=== PATIENT | male | born 1990 | race Caucasian/White ===

== ENCOUNTER 2018-01-27 13:38 | Emergency (ER) | payer OTHER, SELFPAY ==
[2018-01-27 13:40] VITALS: BP 154/79; PULSE 120; RESP 16; TEMP 36.6; O2SAT 98; BMI 22.7
--- NOTE | 2018-01-27 13:49 | RAD_ITS ---
STUDY: X-RAY CHEST REASON FOR EXAM: Male, 27 years old. Palpitations. Fatigue. TECHNIQUE: Single AP portable view of the chest. COMPARISON: None. FINDINGS: EKG electrodes are seen. The lungs are clear and expanded. There is no demonstrated pleural abnormality. Normal size heart. Normal mediastinum and hannah. Normal visualized pulmonary arteries. Normal visualized aortic arch and descending thoracic aorta. Normal visualized thoracic spine. Normal visualized ribs, clavicles, and shoulders. There is no demonstrated abnormality of the visualized soft tissue structures of the upper abdomen. RAD/Chest 1 View (Portable) IMPRESSION: Normal x-ray examination of the chest. Electronically Signed: Scott Molina MD at 14:28 EST Tel [phone], Service support ,
[2018-01-27 13:51] VITALS: BP 140/93; PULSE 100; RESP 16; O2SAT 97
--- NOTE | 2018-01-27 14:05 | ED.VISSUMM ---
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 The patient has no history of LA PE DVT no cardiopulmonary symptoms. No fever no cough, chest pain, no URI symptoms normal bowel bladder habits other than noting 1 or 2 episodes of loose watery diarrhea no blood he has had no exposures to anyone who is been ill no tainted food Heart rate is about 105-110 sinus rhythm on monitor he has no complaints nothing is been different at home or at work he is on no medications and again he has no past medical history he has no specific complaints is able to basically go about his normal activities without any symptoms of any kind Physical Examination: [] 149/93, 90, 97% room air 98.4 oral temperature no distress General, no distress resting comfortably HEENT is generally unremarkable The neck is supple no adenopathy Cardiovascular, regular rate and rhythm Lungs, clear bilateral Abdomen, soft nontender Extremities, no clubbing cyanosis or edema Neurologic, awake alert answering questions appropriately moving all 4 extremities All the above screening labs are obtained Test Results: [] Emergency Department Course and Treatment: [] The patient's EKG shows a sinus rhythm nothing acute, the labs CBC sed rate chemistry thyroid studies chest x-ray UA are all generally unremarkable, he remains asymptomatic in the emergency room with no complaints Indicates now he believes he may been dehydrated as he drinks very little water preferring to drink his coffee we discussed the long differential with him he was remained asymptomatic these palpitations occurred on Friday he has had no fever no cough no chest pain no abdominal pain no numbness weakness paresthesias And require additional outpatient management he is comfortable discharge home he will return for change in symptoms and he is referred to [facility] for further management Treatment Plan: [] Disposition: [] Home stable Impression: [] palpitations This note was generated with Nu-[employer] Plus[employer] software. It may contain incorrect words, spelling, and punctuation that were not noted in review of the chart prior to signing ED Disposition - Plan for ED Patient: Chief Complaint: Palpitations Referrals: NOT,DEFINED [NON-STAFF] -
[2018-01-27 14:09] VITALS: O2SAT 99
[2018-01-27] MEDS: 0.9% Normal Saline 1,000 ML 150 ML IV (14:11)
[2018-01-27] MEDS: 0.9% Normal Saline 1,000 ML 999 ML IV (14:11)
[2018-01-27 14:22] LABS: Erythrocyte Sedimentation Rate 4 mm/hr (0-15)
[2018-01-27 14:24] LABS: Absolute Lymphocyte Count 2.49 X10^3/ul (0.83-4.51); Absolute Neutrophil Count 3.2 X10^3/uL (2.0-7.7); Basophil# 0.01 X10^3/uL; Basophil% 0.2 % (0-1); Eosinophil# 0.04 X10^3/uL; Eosinophils% 0.6 % (0-5); Hematocrit 45.3 % (40-54); Hemoglobin 15.4 g/dl (13.0-16.5); Lymphocyte # 2.49 X10^3/ul (4.0); Lymphocyte % 40.1 % (19-41); Mean Corpuscular Hgb 29.4 pg (27.0-32.0); Mean Corpuscular Volume 86.6 fL (80-94); Mean Platelet Vol. 9.5 fl (6.2-12.0); Monocyte# 0.42 X10^3/uL; Monocyte% 6.8 % (0-10); Neutrophil # 3.24 X10^3/uL (2.7-7.7); Neutrophil % 52.1 % (47-70); Platelet Count 292 K/mm3 (150-450); RBC Distribution Width CV 12.8 % (11.6-14.6); RBC Distribution Width SD 40.7 fl (35.1-43.9); Red Blood Count 5.23 M/mm3 (4.6-6.2); White Blood Count 6.2 K/mm3 (4.4-11.0)
[2018-01-27 14:26] LABS: POSITIVE COUNT NO; POSITIVE DIFFERENTIAL NO; POSITIVE MORPHOLOGY NO
[2018-01-27 14:30] LABS: D-Dimer Quantitative (DVT/PE) < 0.27 FEU/ug/m (0.27-0.49)
[2018-01-27 14:42] LABS: Anion Gap 8 (5-15); BUN 11 mg/dL (7-18); Calcium,Total 9.4 mg/dL (8.5-10.1); Chloride 104 mmol/L (98-107); EST Glomerular Filtration Rate 96 mL/min (>60); Est Glom Filt Rate - Afr Amer 116 mL/min (>60); Estimated Creatinine Clearance 121.39 ml/min; Glucose 85 mg/dL (74-106); Potassium 3.8 mmol/L (3.5-5.1); Sodium Level 141 mmol/L (136-145); T4 Free Direct 1.13 ng/dL (0.76-1.46)
[2018-01-27 14:52] LABS: BNP,B-Type NATRIURETIC PEPTIDE 10.6 pg/mL (0-100)
[2018-01-27 14:58] LABS: Bacteria 0 SEEN /hpf (None Seen); Mucous, Urine 0 SEEN /hpf (<or=2+); Red Blood Cells-Urine 0 SEEN /hpf (0-5); Squamous Epithelial Cells - UA 0 SEEN /hpf (0-5); White Blood Cells 0 SEEN /hpf (0-5)
[2018-01-27 14:59] VITALS: BP 142/90; PULSE 98; RESP 16; O2SAT 98
[2018-01-27 15:01] LABS: Color, Urine Yellow (Yellow); Glucose, Dipstick Normal (Normal); Ketone-Dipstick Negative (Negative); Leukocyte Esterase-Dipstick Negative /ul (Negative); Nitrite-Dipstick Negative (Negative); Occult Blood-Urine Negative /ul (Negative); Protein-Dipstick Negative (Negative); Specific Gravity, Urine 1.015 (1.002-1.030); Urine Bilirubin Dipstick Negative (Negative); Urine Clarity Clear (Clear); Urine Urobilinogen Normal (Normal)
--- NOTE | 2018-01-27 15:46 | ED.DEP ---
ED Disposition - Plan for ED Patient: Chief Complaint: Palpitations Instructions: ED Palpitations Referrals: NOT,DEFINED [NON-STAFF] - Hardik Solomon MD [STAFF PHYSICIAN] -
[2018-01-27 15:52] VITALS: BP 141/76; PULSE 101; RESP 15; O2SAT 98
--- OUTSIDE RECORDS SUMMARY | 2018-05-01 01:54 | XMS RPT_ITS ---
:1990 Author Organization [facility] Care Team Providers Name Role Phone DIANN BRAY (CASINO DUTY MANAGER) Referring Unavailable DIANN BRAY (CASINO DUTY MANAGER) Attending Unavailable Selvin Maier Attending Unavailable Primay Care Physicia, No Primary Care Unavailable Hardik Solomon Attending Unavailable Primay Care Physicia, No Referring Unavailable PROBLEMS PROBLEMS DATE TYPE CONDITION / CODE ATTENDING STATUS SOURCE 02/17/2018 Unknown R94.31 - Abnormal Hardik Solomon electrocardiogram Community [ECG] [EKG] / Hospital R94.31(ICD-10) Repository 02/17/2018 Unknown R00.0 - Tachycardia, Hardik Solomon unspecified / Community R00.0(ICD-10) Hospital Repository 02/17/2018 Unknown R00.2 - Palpitations / Hardik Solomon R00.2(ICD-10) [facility] Hospital Repository 02/17/2018 Unknown Z13.220 - Encounter Hardik Solomon for screening for Community lipoid disorders / Hospital Z13.220(ICD-10) Repository 01/27/2018 Active Tachycardia, NA Active [place] unspecified / Clinic Main R00.0(ICD-10) [place] Repository 01/27/2018 Active Other fatigue / NA Active [place] R53.83(ICD-10) Clinic Main [place] Repository 01/27/2018 Active Chest pain, NA Active [place] unspecified / Clinic Main R07.9(ICD-10) [place] Repository PROCEDURES PROCEDURES No Procedure Records FoundRESULTS RESULTS CARDIOLOGY VISIT Observed: 02/17/2018 Status: F Source: [place] RE[place] 3:56 PM [facility] REPOSITORY [facility] [address] [place] [address] OFFICE VISIT Date of Service: 02/17/18 MR#: [id number] Acct: [id number] Name: ANDRA JEREZ Rep #: [id number] : 1990 Provider: Hardik Solomon MD Age/Sex: 27/M Location: [facility] [place] Status: Signed HPI HPI Chief Complaint: Palpitations Details: ANDRA JEREZ, is a 27 M who presents to the office today for evaluation of palpitations. Specifically he is a nondiabetic, non-smoker, normal cholesterol, nonhypertensive, who apparently and reportedly was told he had a VSD when he was born, which resolved on its own after about 6 months time. I have no documentation to clarify that. He has no family history of premature coronary disease or sudden cardiac . 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 On 01/27/18 while he was at work and after a week's worth of poor eating and drinking habits his apple watch indicated that his heart rate was going between 130 and 150 bpm. Patient drank some water to improve things and his heart rate improved around 80 bpm. He went to the [facility] and was seen by a nurse practitioner and an EKG was performed which showed normal sinus rhythm with anterior ST elevation versus repolarization abnormality. In the ER at [facility] he was evaluated and his heart rate was between 105 and 110 bpm. He is on no medications at this time. His pulmonary workup including a CBC, sed rate, and chemistry and thyroid studies as well as chest x- ray were all unremarkable and he was sent home for follow-up. Patient states that since then he has been doing well. He denies any chest pain, angina, shortness of breath or dyspnea on exertion. His apple watch has however had some episodes of tachycardia. He did not take his pulse to confirm. In our office today's blood pressure is 110/60, pulse is 88 and regular. His physical exam demonstrates clear lungs bilaterally, regular rate and rhythm, normal S1/S2, no S3 or S4, no murmurs are detected. He has no edema. EKG dated 01/27/18 showed normal sinus rhythm, and early repolarization abnormality consistent with age. Lipids are pending Intake Vital Signs02/17/18 Height 6 ft 02/17/18 Weight: 163 lb 02/17/18 Body Mass Index (BMI) 22.1 02/17/18 Blood Pressure 110/60 Intake Visit Reasons: PALPS ([facility] ER) Impregnator Electrolytic Capacitors Required: No Accompanied by: Is patient in pain?: No Allergies No Known Allergies Allergy (Verified 02/12/18 13:51) Medications NK 01/27/18 [History Confirmed 02/12/18] [facility] Medical History Ventricular septal defect (Resolved) Abnormal EKG (Acute 01/27/18) Tachycardia (Acute 01/27/18) Palpitations (Acute 01/27/18) Family History Grandfather CAD (coronary artery disease) Myocardial infarction Uncle CAD (coronary artery disease) Myocardial infarction Social History Smoking Status: Never smoker ROS Const Const: Positive for other (Is a ferry pilot, referred self to be sure ok: 1 time episode rapid hr.); negative for fatigue, weakness, body ache, fever(s), headache(s), chills, frequent falls, night sweats, daytime sleepiness, difficulty sleeping, excessive sweating, weight gain, weight loss, increased appetite, poor appetite or anorexia Eyes Eyes: Negative for blind spots, loss of peripheral vision, transient loss of vision, blurry vision, change in vision, double vision, floaters, tunnel vision or other ENT ENT: Negative for headache(s), dizziness, hearing loss, tinnitus, Nosebleed/epistaxis, balance problems, post nasal drip, lip swelling, tongue swelling, bleeding gums, hoarseness, neck pain, dry mouth or other Cardio Chest Pain: No Palpitations: Yes (One time episode, his ARCHITECTURE PROFESSOR did an ekg and sent him to ER.) Edema: None Muscle aches with walking: None Resp Respiratory: Negative for SOB with activity, SOB at rest, SOB orthopnea\SOB lying down, Cough, Coughing up blood/hemoptysis, chest congestion, pain on inspiration, snoring, stridor, wheezing, crackles, paroxysmal nocturnal dyspnea or other GI GI: Negative nausea, vomiting, heartburn, constipation, belching, bloating, cramping, vomiting blood/hematemesis, bright, red blood in stools, black,tarry stools, loose stools, Difficulty Swallowing or other : Negative for hematuria, frequent nighttime urination/ nocturia, erectile dysfunction or abnormal vaginal bleeding Musc Musc: Negative for balance problems, muscle aches/ myalgia, muscle weakness or joint pain Skin Skin: Negative redness, non-healing lesions, rash, unusual bruising, skin ulcer, wounds, jaundice or other Neuro Neuro: Negative for weakness, headache(s), frequent falls, blurry vision, double vision, dizziness, lightheadedness, near syncope, syncope, orthostatic symptoms, confusion, memory loss, restless legs, vertigo, seizures, lack of coordination or other Maurizio Hematologic/Lymphatic: Negative for easy bleeding, easy bruising, enlarged lymph nodes or other Endo Endo: Negative for fatigue, excessive sweating, cold intolerance, heat intolerance, flushing, increased thirst/drinking, increased hunger, hair loss, hair growth or other Psych Psych: Negative for anxiety, depression, thoughts of harming anyone, thoughts of harming yourself, visual hallucinations, panic attacks or audible hallucinations Allergy Allergy/Immunology: Negative for lip swelling, Negative for tongue swelling, Negative for rash, Negative for throat swelling, Negative for hives Cardiology Exam Const Appearance: cooperative, healthy appearing and no acute distress Nutritional Appearance: well nourished Orientation: alert, oriented x3 and oriented to person Head Head: normal to inspection, atraumatic and normocephalic Nose: external nose normal Face and Sinus: face symmetric Mouth: oral mucosae normal Eyes General: appearance normal, both eyes and all related structures Eyelids: eyelids normal Conjunctivae: conjunctivae normal Pupils: PERRL and normal by confrontation EOM: EOM intact bilaterally Neck Neck: normal visual inspection and full ROM Carotids: normal carotid upstroke Chest Chest inspection: normal inspection of the chest Auscultation: Bilateral: Clear to Auscultation Cardio Palpation: normal PMI Rate: regular rate Rhythm: regular rhythm Heart sounds: S1 normal and S2 normal GI GI: normal to inspection, no hepatosplenomegaly and bowel sounds present Neuro General: alert, oriented x3, awake, CN's II-XI intact bilaterally and moves all extremities Skin Skin: no rashes or lesions noted Extremities Pulses: Normal: Right Femoral Pulse, Left Femoral Pulse, Right Dorsalis Pedis Pulse, Left Dorsalis Pedis Pulse, Right Posterior Tibial Pulse, Left Posterior Tibial Pulse, Right Radial Pulse, Left Radial Pulse Lower Extremity Edema: None: Bilateral Psych Psychological: normal affect Assessment AND Plan 1. Ventricular septal defect Q21.0 Patient said he had it at , and by a few months of age it was closed. Plan 1. Ventricular septal defect: The patient reportedly had a VSD which spontaneously closed on its own about 6 months after he was born. I have no corroborating echocardiogram or old records to confirm or deny that. I cannot detect any murmurs. Patient now presents with palpitations and tachycardia as evidenced by his apple watch. Patient's EKG shows what appears to be early repolarization abnormalities. 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 In addition I recommended a fasting lipid profile as well as a event monitor to try and document her track his arrhythmias. Have advised him to avoid alcohol, dehydration, sleep deprivation, as well as caffeine in order to mitigate any additional palpitation. 2. Abnormal EKG R94.31 Plan 2. Abnormal EKG: The patient has normal sinus rhythm with anterior J-point elevation consistent with LVH and repolarization of normality. This is considered a normal finding in a young male. Echocardiogram is pending. Orders Orders: 3. Tachycardia R00.0 Plan 3. 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 4. Return office in 6 months. This note was generated using a voice recognition system and there may be incorrect words, spelling or punctuation that were not noted when reviewing the office note prior to saving. Orders Orders: Plan Detail Other Orders Orders: Follow Up +6M (Solomon) Coding Level of Care Code Off vis,new,level 4 Diagnoses Ventricular septal defect Q21.0 Abnormal EKG R94.31 Tachycardia R00.0 Coding Level of Care Code Off vis,new,level 4 Diagnoses Ventricular septal defect Q21.0 Abnormal EKG R94.31 Tachycardia R00.0 Supplemental Info Supplemental Information Diagnostics Chest X-Ray 01/27/18 02/17/18 4156 <Electronically signed by Hardik Solomon MD> Date Hardik Solomon MD [facility] Signature: Date (if applicable) CC: EMERGENCY DEPARTMENT Observed: 01/28/2018 Status: F Source: [place] SUMMARY 11:37 PM [facility] REPOSITORY [facility] Medical Records Department [address] [place] [address] Emergency Department Summary 01/27/18 1405 MR#: [id number] Acct: [id number] Name: ANDRA JEREZ Rep #: [id number] : 1990 27 From: Selvin Maier MD PCP: Care Physician, No Primary Status: DEP ER - ER Visit Summary Date of Service: 01/27/18 Chief Complaint: [] Palpitations rapid heart rate on Friday History of Present Illness: The patient is a 27 M [] patient indicates 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 The patient has no history of FL PE DVT no cardiopulmonary symptoms. No fever no cough, chest pain, no URI symptoms normal bowel bladder habits other than noting 1 or 2 episodes of loose watery diarrhea no blood he has had no exposures to anyone who is been ill no tainted food Heart rate is about 105-110 sinus rhythm on monitor he has no complaints nothing is been different at home or at work he is on no medications and again he has no past medical history he has no specific complaints is able to basically go about his normal activities without any symptoms of any kind Physical Examination: [] 149/93, 90, 97% room air 98.4 oral temperature no distress General, no distress resting comfortably HEENT is generally unremarkable The neck is supple no adenopathy Cardiovascular, regular rate and rhythm Lungs, clear bilateral Abdomen, soft nontender Extremities, no clubbing cyanosis or edema Neurologic, awake alert answering questions appropriately moving all 4 extremities All the above screening labs are obtained Test Results: [] Emergency Department Course and Treatment: [] The patient's EKG shows a sinus rhythm nothing acute, the labs CBC sed rate chemistry thyroid studies chest x-ray UA are all generally unremarkable, he remains asymptomatic in the emergency room with no complaints Indicates now he believes he may been dehydrated as he drinks very little water preferring to drink his coffee we discussed the long differential with him he was remained asymptomatic these palpitations occurred on Friday he has had no fever no cough no chest pain no abdominal pain no numbness weakness paresthesias And require additional outpatient management he is comfortable discharge home he will return for change in symptoms and he is referred to [place] [facility] for further management Treatment Plan: [] Disposition: [] Home stable Impression: [] palpitations This note was generated with [email or web address] dictation software. It may contain incorrect words, spelling, and punctuation that were not noted in review of the chart prior to signing ED Disposition - Plan for ED Patient: Chief Complaint: Palpitations Referrals: NOT,DEFINED [NON-STAFF] - What to do if you have Problems For any increased pain, shortness of breath, bleeding, nausea or vomiting, chest pain, or any unexpected problems, contact your Primary Care Provider. Call [facility] ([phone]) or report to the closest Emergency Room. Call 911 if necessary. 01/28/18 7323 <Electronically signed by Selvin Maier MD> Date Selvin Maier MD Cosigner Signature (If Indicated): Date CC: No Primary Care Physician DISCHARGE INSTRUCTION Observed: 01/27/2018 Status: F Source: [place] 3:47 PM [facility] REPOSITORY [facility] Medical Records Department [address] [place] [address] Discharge Instruction 01/27/18 1546 MR#: [id number] Acct: [id number] Name: ANDRA JEREZ Rep #: [id number] : 1990 27 From: Selvin Maier MD PCP: Care Physician, No Primary Status: REG ER ED Disposition - Plan for ED Patient: Chief Complaint: Palpitations Instructions: ED Palpitations Referrals: NOT,DEFINED [NON-STAFF] - Hardik Solomon MD [STAFF PHYSICIAN] - What to do if you have Problems For any increased pain, shortness of breath, bleeding, nausea or vomiting, chest pain, or any unexpected problems, contact your Primary Care Provider. Call [facility] ([phone]) or report to the closest Emergency Room. Call 911 if necessary. 01/27/18 1547 <Electronically signed by Selvin Maier MD> Date Selvin Maier MD Cosigner Signature (If Indicated): Date CC: No Primary Care Physician URINALYSIS, COMPLETE Collected: 01/27/2018 Status: F Source: [place] 2:54 PM [facility] REPOSITORY Order Comment: Order Date: 01/27/18 How was Urine Obtained? CLEAN CATCH TYPE CODE TESTS RESULT OUT OF RANGE REFERENCE UNITS LAB L400.3000 Yellow COLOR Normal Yellow LAB L400.3050 Clear Normal CLARITY Clear LAB L400.3200 Normal mg/dl Normal GLUCOSE, UR Normal LAB L400.3300 Negative mg/dL Normal BILIRUBIN URINE Negative LAB L400.3400 Negative mg/dl Normal KETONE UR Negative LAB L400.3465 1.002-1.030 Normal SP.GR. DIPSTX 1.015 LAB L400.3550 5.0 - 8.0 pH UR Normal 6.0 LAB L400.3600 Negative mg/dl PROT Normal DIPSTX Negative LAB L400.3700 Normal mg/dl Normal UROBILI Normal LAB L400.3750 Negative Normal NITRITE UR Negative LAB L400.3780 Negative /ul Normal OCCULT BLOOD-UR Negative LAB L400.3800 Negative /ul LEUK Normal ESTERASE Negative LAB L400.4050 0-5 /hpf WBC 0 Normal SEEN LAB L400.4100 0-5 /hpf 0 Normal RBC-UA SEEN LAB L400.4150 0-5 /hpf SQUAM 0 Normal EPI SEEN LAB L400.4300 None Seen /hpf 0 Normal BACTERIA SEEN LAB L400.4350 <or=2+ /hpf 0 Normal MUCUS, URINE SEEN Performed By: #### L400.0001 #### [facility] [address] [place], [address] ERYTHROCYTE SED RATE Collected: 01/27/2018 Status: F Source: [place] 2:10 PM [facility] REPOSITORY TYPE CODE TESTS RESULT OUT OF RANGE REFERENCE UNITS LAB L102.0000 0-15 mm/hr Normal SED RATE 4 Performed By: #### L101.9900, L100.0100 #### [facility] [address] [place], [address] CBC W/DIFF, AUTOMATED Collected: 01/27/2018 Status: F Source: [place] 2:10 PM [facility] REPOSITORY TYPE CODE TESTS RESULT OUT OF RANGE REFERENCE UNITS LAB L100.1000 4.4-11.0 K/mm3 Normal WBC 6.2 LAB L100.1200 4.6-6.2 M/mm3 Normal RBC 5.23 LAB L100.1300 13.0-16.5 g/dl Normal HGB 15.4 LAB L100.1400 40-54 % Normal HCT 45.3 LAB L100.1500 80-94 fL Normal MCV 86.6 LAB L100.1600 27.0-32.0 pg Normal MCH 29.4 LAB L100.1700 32-36 g/gl Normal MCHC 34.0 LAB L100.1810 11.6-14.6 % Normal RDW CV 12.8 LAB L100.1820 35.1-43.9 fl Normal RDW SD 40.7 LAB L100.1900 150-450 K/mm3 Normal PLT 292 LAB L100.2000 6.2-12.0 fl Normal MPV 9.5 LAB L100.2100 47-70 % Normal NEUT% 52.1 LAB L100.2200 19-41 % Normal LY% 40.1 LAB L100.2300 0-10 % Normal MONO% 6.8 LAB L100.2400 0-5 % Normal EO% 0.6 LAB L100.2500 0-1 % Normal BASO% 0.2 LAB L100.2550 0.0-0.9 % Normal IM GRAN % 0.200 Result Comment: IG% - Immature Granulocytes (promyelocytes, myelocytes and metamyelocytes) > 1% indicates that a LEFT SHIFT is Present. LAB L100.2620 2.0-7.7 X10 3/uL Normal Absolute Neut 3.2 LAB L100.2720 0.83-4.51 X10 3/ul Normal Absolute Lymph 2.49 Performed By: #### L101.9900, L100.0100 #### [facility] [address] [facility] [place], [place], [address] D-DIMER QUANTITATIVE Collected: 01/27/2018 Status: F Source: [place] (DVT/PE) 2:10 PM [facility] REPOSITORY TYPE CODE TESTS RESULT OUT OF RANGE REFERENCE UNITS LAB L300.8000 0.27-0.49 FEU/ug/m Low D-DIMER < 0.27 QUANT Result Comment: NORMAL D-Dimer level (<0.50) indicates no DVT or PE. NORMAL D-Dimer level (<0.50) indicates no DVT or PE. Performed By: #### L300.8000 #### [facility] [address] [facility] [place], [place], [address] BASIC METABOLIC Collected: 01/27/2018 Status: F Source: [place] PROFILE (BMP) 2:10 PM [facility] REPOSITORY TYPE CODE TESTS RESULT OUT OF RANGE REFERENCE UNITS LAB L501.0100 74-106 mg/dL Normal GLU 85 Result Comment: Please note revised GLUCOSE reference range effective 2017. LAB L501.1000 7-18 mg/dL Normal BUN 11 LAB L501.1100 0.70-1.30 mg/dL Normal CREAT,SERUM 1.00 Result Comment: The validity of the calculated GFR AND GFRAA in patients over 70 years has not been determined. Clinical correlation is essential. LAB L501.1110 >60 mL/min Normal EST GFR 96 Result Comment: Non- GFR Calc LAB L501.1115 >60 mL/min Normal EST GFR - AA 116 Result Comment: GFR Calc LAB L501.1255 ml/min Normal Estimated CRCL 121.39 LAB L501.1300 10-20 RATIO BUN/CRE Normal 11.0 LAB L501.2200 8.5-10 mg/dL .1 CA Normal 9.4 LAB L501.5300 136-14 mmol/L 5 NA Normal 141 LAB L501.5600 3.5-5. mmol/L 1 K Normal 3.8 LAB L501.5900 98-107 mmol/L CL Normal 104 LAB L501.6100 21.0-3 mmol/L 2.0 CO2 Normal 29.0 LAB L501.6200 5-15 GAP Normal 8 Performed By: #### L500.2500, L501.4010, L501.9520, L506.0400 #### [facility] [address] [facility] [place], [place], [address] TROPONIN-I Collected: 01/27/2018 Status: F Source: [place] 2:10 PM [facility] REPOSITORY TYPE CODE TESTS RESULT OUT OF RANGE REFERENCE UNITS LAB L501.4010 <0.045 ng/mL Normal < 0.015 TROPONIN-I Result Comment: TROPONIN-I EXPECTED VALUES <0.045 Negative 0.045 - 0.590 Consistent with Cardiac Damage > OR = 0.600 Critical Value Not every elevated troponin is indicative of FL. These values should be used with clinical judgement in examining the patient's clinical picture for diagnosis. To establish a diagnosis of FL versus myocardial injury, there must be a demonstrated rise and/or fall in the troponin values, in addition to ischemic symptoms, EKG changes, new regional wall motion abnormality, and/or angiographical evidence. PLEASE NOTE: REFERENCE RANGES EDITED 17 Performed By: #### L500.2500, L501.4010, L501.9520, L506.0400 #### [facility] [address] [place], [address] THYROID STIM HORMONE Collected: 01/27/2018 Status: F Source: [place] (TSH) 2:10 PM [facility] REPOSITORY TYPE CODE TESTS RESULT OUT OF RANGE REFERENCE UNITS LAB L501.9520 0.358-3.74 uIU/mL Normal TSH 1.60 Performed By: #### L500.2500, L501.4010, L501.9520, L506.0400 #### [facility] [address] [place], [address] T4 FREE DIRECT Collected: 01/27/2018 Status: F Source: [place] 2:10 PM [facility] REPOSITORY TYPE CODE TESTS RESULT OUT OF RANGE REFERENCE UNITS LAB L506.0400 0.76-1.46 ng/dL Normal T4 FREE 1.13 DIRECT Performed By: #### L500.2500, L501.4010, L501.9520, L506.0400 #### [facility] [address] [place], [address] BNP,B-TYPE NATRIURETIC Collected: 01/27/2018 Status: F Source: [place] PEPTIDE 2:10 PM [facility] REPOSITORY TYPE CODE TESTS RESULT OUT OF RANGE REFERENCE UNITS LAB L503.6620 0-100 pg/mL Normal B-TYPE 10.6 PAVEL PEP Performed By: #### L503.6620 #### [facility] [address] [place], [address] CHEST 1 VIEW Observed: 01/27/2018 Status: F Source: [place] (PORTABLE) 1:55 PM [facility] REPOSITORY [facility] Imaging Services [address] [place] [address] Chest 1 View (Portable) MR#: [id number] Acct: [id number] Name: ANDRA JEREZ Rep #: [id number] : 1990 M 27 From: Scott Molina MD PCP: Care Physician, No Primary Status: REG ER Study: Chest 1 View (Portable) Date of Exam: 01/27/18 Exam# [id number] Ordering Dr: Selvin Maier MD STUDY: X-RAY CHEST REASON FOR EXAM: Male, 27 years old. Palpitations. Fatigue. TECHNIQUE: Single AP portable view of the chest. COMPARISON: None. FINDINGS: EKG electrodes are seen. The lungs are clear and expanded. There is no demonstrated pleural abnormality. Normal size heart. Normal mediastinum and hannah. Normal visualized pulmonary arteries. Normal visualized aortic arch and descending thoracic aorta. Normal visualized thoracic spine. Normal visualized ribs, clavicles, and shoulders. There is no demonstrated abnormality of the visualized soft tissue structures of the upper abdomen. RAD/Chest 1 View (Portable) IMPRESSION: Normal x-ray examination of the chest. Electronically Signed: Scott Molina MD at 14:28 EST Tel [phone], Service support , CC: MD Huma Maier; No Primary Care Physician Facility Service Associate: Signed ECG COMPLETE W Observed: 01/27/2018 Status: F Source: [place] [facility] 1:18 PM [facility] REPOSITORY NAME : ANDRA JEREZ PID : [id number] : 1990 Gender : Male Race : ORD : [id number] Procedure Date : Jan 27 2018 13:18:05 Edit Date : Feb 09 2018 09:17:04 Diagnosis:NORMAL SINUS RHYTHM ST ELEVATION, CONSIDER EARLY REPOLARIZATION BORDERLINE ECG Confirmed by GRAY MOONEY D.O. ([id number]) on 02/09/2018 9:16:53 AM Ventricular Rate : 78 BPM Atrial Rate : 78 BPM P-R Interval : 142 ms QRS Duration : 76 ms Q-T Interval : 368 ms QTC Calculation(Bezet) : 419 ms P [place] : 1 degrees R [place] : 84 degrees T [place] : 44 degrees Test Reason : Location : [facility] : [facility] Overread By : GRAY MOONEY D.O. Edited By : GRAY MOONEY D.O. Referred By : DIANN BRAY Acquired by : ANGEL, PROGRESS Observed: 01/27/2018 Status: COMPLETED Source: [place] 12:43 PM [facility] REPOSITORY [facility] ID: [id number] Author: Diann (Debbie) Luci Service: (none) Author Type: Nurse Practitioner Type: Progress Notes Filed: 01/27/2018 2:37 PM Note Text: 01/27/2018 Patient presents with: Fatigue SUBJECTIVE: This is a 27 year old that is here today for a new limited visit, not regularly followed by a provider, he states that he is usually overal healthy. Friday felt fatigued, was watching his smart watch and saw that his HR was up 110-135 while sitting and doing nothing. He states that he thought about going to ER, drank water and it resolved. HR over the weekend, no higher than 110. He denies this ever happened in the past. He also had an episode of left sided chest pressure that only lasted seconds at a time, but several times in a short period. Admits that he does not drink a lot of water and does drink a lot of coffee and caffeine. He states that he did not drink caffeine on Friday. He states that over the weekend, felt worn out, no other symptoms of URI or anything like that. He admits to stress, but does not feel that he has anxiety, he states that he calms down when he works out whatever issue he has. 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 He did have an episode of heart burn lasting a whole day a couple of weeks ago that is not typical for him. No known food trigger, none since. Eating normally, denies NVD. Regular BMs. No concerns. He denies any significant family history other than grandmother having Afib. 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 No other history. Denies BURGESS, dizziness, lightheadedness, weakness. PAST MEDICAL HISTORY Diagnosis Date - VSD (ventricular septal defect) ALLERGIES Patient has no known allergies. MEDICATIONS No current outpatient prescriptions on file. No current facility-administered medications for this visit. Medications and allergies reviewed by this provider. SOCIAL HISTORY Social History Marital status: Spouse name: Years of education: Number of children: Social History Main Topics Smoking status: Never Smoker Smokeless tobacco: Never Used Alcohol use: Yes Drug use: No REVIEW OF SYSTEMS see HPI OBJECTIVE: BP 112/72 Pulse 90 Resp 20 Wt 76.2 kg (168 lb) SpO2 99% . Vital signs reviewed by this provider. PHYSICAL EXAMINATION: General appearance: Well appearing, alert, in no acute distress, well-hydrated, well nourished. Skin: Skin color, texture, turgor normal, no suspicious rashes or lesions Lungs: lungs clear to auscultation. No wheezing, rhonchi, rales Heart: RRR without murmur, gallop, or rubs. No ectopy Extremities: No deformities, edema, skin discoloration, clubbing or cyanosis. Good capillary refill. , Pulses: 2+ ASSESSMENT/PLAN: 1. Tachycardia - ICD9: 785.0, ICD10: R00.0 (primary diagnosis) - report called to [facility] ER- Nurse Ivonne- with request for further work up after seeing ST elevation on EKG. - ECG COMPLETE W INTERPRETATION - CBC + DIFF - COMP METABOLIC PANEL - TSH BLD - T4 FREE/FREE THYROX - T3 BLD 2. Fatigue, unspecified type - ICD9: 780.79, ICD10: R53.83 - can further work up with below labs after cardiac work up complete - ECG COMPLETE W INTERPRETATION - CBC + DIFF - COMP METABOLIC PANEL - TSH BLD - T4 FREE/FREE THYROX - T3 BLD 3. Chest pain, unspecified type - ICD9: 786.50, ICD10: R07.9 Chest pain of unclear etiology, patient with significant risk factor(s) of none - Electrocardiogram: An ECG today showed normal sinus rhythm with ST elevation probably due to early repolarization at 78 BPM, DE interval 142 ms, normal QRS, QT 368 ms - Referred to ED by squad - ECG COMPLETE W INTERPRETATION 4. ST elevation - ICD9: 794.31, ICD10: R94.31 - report called to [facility] ER Diann Bray APRN.DEBBIE SOLO Observed: 01/27/2018 Status: COMPLETED Source: [place] 12:40 PM [facility] REPOSITORY Office Visit (FAMPWS) SOLITARIOANDRA Martinez ([id number]) 1990 M Date Time Provider Department 01/27/18 12:40 PM DIANN BRAY (CASINO DUTY MANAGER) VIDA During your visit today, we recorded the following information about you: Pulse Respiration Blood pressure Weight 90/minute 20/minute 112/72 76.2 kg Diann Bray APRN.CNP 01/27/2018 2:37 PM Signed 01/27/2018 Patient presents with: Fatigue SUBJECTIVE: This is a 27 year old that is here today for a new limited visit, not regularly followed by a provider, he states that he is usually overal healthy. Friday felt fatigued, was watching his smart watch and saw that his HR was up 110-135 while sitting and doing nothing. He states that he thought about going to ER, drank water and it resolved. HR over the weekend, no higher than 110. He denies this ever happened in the past. He also had an episode of left sided chest pressure that only lasted seconds at a time, but several times in a short period. Admits that he does not drink a lot of water and does drink a lot of coffee and caffeine. He states that he did not drink caffeine on Friday. He states that over the weekend, felt worn out, no other symptoms of URI or anything like that. He admits to stress, but does not feel that he has anxiety, he states that he calms down when he works out whatever issue he has. 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 He did have an episode of heart burn lasting a whole day a couple of weeks ago that is not typical for him. No known food trigger, none since. Eating normally, denies NVD. Regular BMs. No concerns. He denies any significant family history other than grandmother having Afib. 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 No other history. Denies BURGESS, dizziness, lightheadedness, weakness. PAST MEDICAL HISTORY Diagnosis Date - VSD (ventricular septal defect) ALLERGIES Patient has no known allergies. MEDICATIONS No current outpatient prescriptions on file. No current facility-administered medications for this visit. Medications and allergies reviewed by this provider. SOCIAL HISTORY Social History Marital status: Spouse name: Years of education: Number of children: Social History Main Topics Smoking status: Never Smoker Smokeless tobacco: Never Used Alcohol use: Yes Drug use: No REVIEW OF SYSTEMS see HPI OBJECTIVE: BP 112/72 Pulse 90 Resp 20 Wt 76.2 kg (168 lb) SpO2 99% . Vital signs reviewed by this provider. PHYSICAL EXAMINATION: General appearance: Well appearing, alert, in no acute distress, well-hydrated, well nourished. Skin: Skin color, texture, turgor normal, no suspicious rashes or lesions Lungs: lungs clear to auscultation. No wheezing, rhonchi, rales Heart: RRR without murmur, gallop, or rubs. No ectopy Extremities: No deformities, edema, skin discoloration, clubbing or cyanosis. Good capillary refill. , Pulses: 2+ ASSESSMENT/PLAN: 1. Tachycardia - ICD9: 785.0, ICD10: R00.0 (primary diagnosis) - report called to [facility] ER- Nurse Coronado- with request for further work up after seeing ST elevation on EKG. - ECG COMPLETE W INTERPRETATION - CBC + DIFF - COMP METABOLIC PANEL - TSH BLD - T4 FREE/FREE THYROX - T3 BLD 2. Fatigue, unspecified type - ICD9: 780.79, ICD10: R53.83 - can further work up with below labs after cardiac work up complete - ECG COMPLETE W INTERPRETATION - CBC + DIFF - COMP METABOLIC PANEL - TSH BLD - T4 FREE/FREE THYROX - T3 BLD 3. Chest pain, unspecified type - ICD9: 786.50, ICD10: R07.9 Chest pain of unclear etiology, patient with significant risk factor(s) of none - Electrocardiogram: An ECG today showed normal sinus rhythm with ST elevation probably due to early repolarization at 78 BPM, DE interval 142 ms, normal QRS, QT 368 ms - Referred to ED by squad - ECG COMPLETE W INTERPRETATION 4. ST elevation - ICD9: 794.31, ICD10: R94.31 - report called to [facility] ER Diann Bray APRN.CASINO DUTY MANAGER Referring Provider: SELF [200] Allergies As of Date: 01/27/2018 (No Known Allergies) Date Reviewed: 01/27/2018 Reviewed by: Destiny oMnteiro) ZULY Cruz - Fully Assessed Reason for Visit: Fatigue [46] Primary Visit Diagnosis:Tachycardia [R00.0] Other Visit Diagnoses:Fatigue, unspecified type [R53.83] Chest pain, unspecified type [R07.9] ST elevation [R94.31] Order(s):ECG COMPLETE W INTERPRETATION [ECG01] Order #: [id number] FUTURE CBC + DIFF [SQCBCDIF] Order #: [id number] FUTURE COMP METABOLIC PANEL [SQCMP] Order #: [id number] FUTURE TSH BLD [SQTSH] Order #: [id number] FUTURE T4 FREE/FREE THYROX [SQFT4] Order #: [id number] FUTURE T3 BLD [SQT3] Order #: [id number] FUTURE Problem List As Of Date: 01/27/2018 (None) Encounter Status:Closed by DIANN BRAY on 01/27/18 ALLERGIES ALLERGIES DATE TYPE / CODE NAME / CODE REACTION SEVERITY SOURCE 02/12/2018 Drug No Known Unknown [facility] Allergy/416 Allergies/S45981 Hospital [id number](SNOM 0388(RXNORM) Repository ED CT) Drug NO KNOWN [facility] Class/16601 ALLERGIES Main [place] 1003(SNOMED Repository CT) ENCOUNTERS ENCOUNTERS ADMIT/DISCHARGE ACCOUNT ADMITTING ENCOUNTER LOCATION SOURCE NUMBER CLASS 02/17/2018/02/17/19 [id number] Ambulatory BMSBuilding:[facility] [place] [facility] [place] Repository 01/27/2018/01/28/20 [id number] Ambulatory [address] Repository 01/27/2018/01/28/20 [id number] Emergency [address] ing:ED Repository 01/27/2018/01/29/20 [id number] Ambulatory [address] Repository PAYERS PAYERS ENCOUNTER GUARANTOR PAYER SUBSCRIBER SOURCE 02/17/2018 ANDRA J Primary ANDRA J [place] [id number] [place] Insurance:MEDICAL EWINGDOB: [facility] [id number] Hospital [address]Eds: 330) Number: Repository [phone] ) [id number] Date:[id number] [address]ER: 02/17/2018 Secondary NOT GIVENUNK [place] Insurance:SELF PAY [facility] Number: Effective Repository Date:2018-02-17 01/27/2018 ANDRA J Primary ANDRA J [place] [id number] [place] Insurance:MEDICAL EWINGDOB: [facility] [id number] Hospital [address]Smg: (330) Number: Repository [phone] () [id number] Date:[id number] [address]ZE: 01/27/2018 Secondary NOT GIVENUNK [place] Insurance:SELF PAY [facility] Number: Effective Repository Date:2018-01-27
== END 2018-01-27 16:12 | disposition home or self-care (01) ==
LOC: ED 14:12
PROVIDERS: Emergency Provider Emergency Medicine
DX: R00.2 Palpitations (principal)
CPT/HCPCS: 71045; 80048; 81001; 83880; 84439; 84443; 84484; 85025; 85379; 85652; 93005; 96360; 96361; 99284; J7030; A4216

== ENCOUNTER → 2018-03-10 13:00 | Outpatient (CLI) | payer OTHER, SELFPAY ==
[2018-02-17 15:17] VITALS: BMI 22.1
--- NOTE | 2018-03-10 13:03 | ECHOD_ITS ---
Reason For Study: ABN EKG Procedure This was a 2D Doppler, Color Flow transthoracic echocardiogram. Exam performed in department. Left Ventricle Normal size and thickness. Successfully repaired proximal VSD with no evidence of shunting. The estimated ejection fraction is 65 %. Normal diastology for age. No regional wall motion abnormalities noted. Right Ventricle Normal size and thickness. Normal systolic function. Atria Normal left atrium. Normal right atrium. Normal atrial septum. Mitral Valve The mitral valve is structurally normal. No prolapse or stenosis seen. Trivial mitral valve insufficiency. Tricuspid Valve Normal tricuspid valve. Trivial tricuspid valve insufficiency. Right ventricular systolic pressure estimated to be 34 mmHg. Aortic Valve Normal aortic valve. Trisinus/trileaflet aortic valve. Pulmonic Valve Normal pulmonic valve. Great Vessels Normal aortic root. Normal arch. Normal inferior vena cava. Inferior vena cava collapse with sniff. Pericardium/Pleural No pericardial effusion. MMode/2D Measurements & Calculations LVIDd: 3.5 cm IVSd: 1.2 cm Ao root diam: 2.7 cm LVIDs: 2.3 cm LVPWd: 1.1 cm RVDd: 3.3 cm FS: 36.1 % LAV(MOD-bp): 40.9 ml LA A4 area: 16.9 cm2 LA dimension(2D): 3.3 cm LAV(MOD-bp) Indexed: 21.1 ml/m2 LAV(MOD-sp2): 36.3 ml LAV(MOD-sp4): 43.5 ml RA A4 area: 13.8 cm2 Time Measurements MV dec time: 0.14 sec Doppler Measurements & Calculations MV E max gian: 93.7 cm/sec Lat Peak E' Gian: 18.6 cm/sec Med Peak E' Gian: 13.0 cm/sec MV A max gian: 65.4 cm/sec E/E' lat: 5.0 E/E' med: 7.2 MV E/A: 1.4 Ao V2 max: 116.1 cm/sec LV V1 max: 103.0 cm/sec PA V2 max: 145.2 cm/sec Ao max P.4 mmHg LV V1 max P.2 mmHg TR max gian: 263.0 cm/sec TR max P.2 mmHg Interpretation Summary The estimated ejection fraction is 65 %. Successfully repaired proximal VSD with no evidence of shunting. Normal diastology for age. Trivial mitral valve insufficiency. Trivial tricuspid valve insufficiency. Right ventricular systolic pressure estimated to be 34 mmHg. There is no comparison study available. Ordering Physician: Hardik Solomon Referring Physician: Hardik Solomon Performed By: Caprice Morrow, MAINOR, RVT
== END ==
PROVIDERS: Referring Provider Internal Medicine Cardiovascular Disease; Visit Provider Internal Medicine Cardiovascular Disease
DX: R94.31 Abnormal electrocardiogram [ECG] [EKG] (principal); R00.0 Tachycardia, unspecified; R00.2 Palpitations
CPT/HCPCS: 93306

== ENCOUNTER → 2018-03-12 10:32 | Outpatient (CLI) | payer OTHER, SELFPAY ==
[2018-02-17 15:17] VITALS: BMI 22.1
--- NOTE | 2018-03-12 10:37 | STE_ITS ---
Reason For Study: PALPITATIONS Stress Results Protocol: Malik Protocol Maximum Predicted HR: 195 bpm Target HR: 166 bpm % Maximum Predicted HR: 99 % DurationHeart Rate Stage (mm:ss) (bpm) BP BASELINE 109 120/70 STAGE 1 3:00 113 148/68 STAGE 2 3:00 164 160/70 STAGE 3 3:00 179 180/70 STAGE 4 3:00 193 172/48 RECOVERY 116 130/70 Stress Duration: 12:00 mm:ss Maximum Stress HR: 193 bpm Baseline Echocardiogram Findings The estimated ejection fraction is 65 %. Stress Echo Wall motion Data Resting WM Intermediate WM Stress WM Resting Wall Motion Wall Motion Stress No regional wall motion No regional wall motion abnormalities noted. abnormalities noted. EKG Data The baseline ECG displays normal sinus rhythm. The patient exercised according to the regular Malik protocol for a total duration of 12:00. The maximum heart rate attained was 196 beats per minute. This was 100% of maximum predicted heart rate. The patient exercised into stage 5 of the Malik protocol. During stress, there were no ST or T wave changes noted to suggest ischemia. No clinical angina was noted. Interpretation Summary The estimated ejection fraction is 65 %. Normal, adequate, treadmill echocardiogram. Negative for ischemia by EKG and echocardiographic criteria. No anginal symptoms noted. Rare PVCs noted. Appropriate blood pressure response to exercise. Above average exercise capacity for age. Final LVEF of 75%. Test terminated due to dyspnea and attainment of target heart rate. Patient tolerated procedure well no complications. Ordering Physician: Hardik Solomon Referring Physician: Hardik Solomon Performed By: Kyra Cummins RDCS
== END ==
PROVIDERS: Referring Provider Internal Medicine Cardiovascular Disease; Visit Provider Internal Medicine Cardiovascular Disease
DX: R00.2 Palpitations (principal); R94.31 Abnormal electrocardiogram [ECG] [EKG]; R00.0 Tachycardia, unspecified
CPT/HCPCS: 93017; 93350

== ENCOUNTER 2024-06-23 12:19 | Day surgery (SDC) | payer SELFPAY ==
--- NOTE | 2024-06-21 16:36 | PAT.ANESEVAL ---
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 When Was Last Pacemaker Check QUESTION #4 FULL TEXT: You/Your Family Experience fever (hyperthermia) with Anesthesia Last Oral Intake Last Oral intake: Last Oral Intake NPO since Meds taken in AM with sips of water? Meds patient instructed to take am of surgery PONV PONV - moisture conditioner operator: PONV - moisture conditioner operator Female No 06/21/24 11:07 HX of Motion Sickness No 06/21/24 11:07 HX of N/V After Surgery No 06/21/24 11:07 Non-Smoker Yes 06/21/24 11:07 Duration of Surgery greater No 06/21/24 11:07 than 60 minutes Number of Risk Factors 1 06/21/24 11:07 PONV Score Low Risk 06/21/24 11:07 Respiratory Assessment Respiratory Assessment - moisture conditioner operator: Respiratory Tract Infection Hx - moisture conditioner operator Hx Respiratory Tract Infection No 06/21/24 11:07 STOP Sleep Apnea STOP Sleep Apnea - moisture conditioner operator: STOP Sleep Apnea - moisture conditioner operator Hx Hypertension No 06/21/24 11:07 Hx Sleep Apnea No 06/21/24 11:07 CPAP BIPAP Do you snore loudly (louder Yes 06/21/24 11:07 than talking or can be heard Do you often feel tired/ No 06/21/24 11:07 fatigued/ sleepy during daytime? Has anyone observed you stop No 06/21/24 11:07 breathing during sleep? STOP Results Negative 06/21/24 11:07 QUESTION #5 FULL TEXT : Do you snore loudly (louder than talking or can be heard through closed doors)? 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 Specify any problems Hx of Preganancy in last 3 N/A 06/21/24 11:07 Months Nurse Filling Out Transfusion MGRIFFROYER 06/21/24 11:07 & Questions: Date: 06/21/24 06/21/24 11:07 Time: 11:08 06/21/24 11:07 Patient unable to answer at this time (ie. confused, unrespo /Reproduction History /Reproductive History - moisture conditioner operator: /Reproductive Hx- moisture conditioner operator Hx Now Gestational Age (in weeks): EDC: Hx Hx Para Hx Section SAB [facility] Medical History (Updated 06/21/24 @ 12:30 by Falguni Hernandez) Wears contact lenses Alcohol use High cholesterol Heartburn Non-smoker Cardiology follow-up encounter History of stress test History of echocardiogram Ventricular septal defect Abnormal EKG (01/27/18) Tachycardia (01/27/18) Palpitations (01/27/18) Home Medications ?Medication ?Instructions ?Recorded ?Last Taken ?Type NK 01/27/18 Unknown History Allergy/AdvReac Type Severity Reaction Status Date / Time No Known Allergies Allergy Verified 06/21/24 11:06 Family History Grandfather CAD (coronary artery disease) Myocardial infarction Uncle CAD (coronary artery disease) Myocardial infarction Surgical History H/O wisdom tooth extraction Social History Smoking Status: Never smoker alcohol intake: current substance use type: does not use frequency: daily duration: 15-30 minutes/day Audit: Pertinent Findings Pertinent Findings EKG Perinent findings: 01/27/2018. Normal sinus rhythm. ST elevation, consider early repolarization. Stress test pertinent findings: 03/12/2018. EF 65%. Negative for ischemia by EKG and echogenic criteria. Ejection fraction with stress was 75%. Echo (EF%) pertinent findings: 03/10/2018. EF 65%. RVSP is 34 mmHg. No aortic stenosis is noted. Consult pertinent findings: 02/17/2018. 1. Ventriculoseptal defect-noted at . Close by a few months of age. Patient has no detectable murmurs at this time. Patient does present with palpitations and tachycardia on his Apple Watch. Will check echo and stress. (See above) 2. Abnormal EKG-normal sinus rhythm with anterior J-point elevation consistent with LVH and repolarization abnormality. Consider normal in young male. 3. 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 Recommendation Anesthesia Recommendation Anesthesia recommendation: F/U recommended (Did patient ever get his Holter monitor done?)
--- NOTE | 2024-06-22 12:45 | PAT.ANESEVAL ---
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 When Was Last Pacemaker Check QUESTION #4 FULL TEXT: You/Your Family Experience fever (hyperthermia) with Anesthesia Last Oral Intake Last Oral intake: Last Oral Intake NPO since Meds taken in AM with sips of water? Meds patient instructed to take am of surgery PONV PONV - sales marketing coordinator: PONV - sales marketing coordinator Female No 06/21/24 11:07 HX of Motion Sickness No 06/21/24 11:07 HX of N/V After Surgery No 06/21/24 11:07 Non-Smoker Yes 06/21/24 11:07 Duration of Surgery greater No 06/21/24 11:07 than 60 minutes Number of Risk Factors 1 06/21/24 11:07 PONV Score Low Risk 06/21/24 11:07 Respiratory Assessment Respiratory Assessment - sales marketing coordinator: Respiratory Tract Infection Hx - sales marketing coordinator Hx Respiratory Tract Infection No 06/21/24 11:07 STOP Sleep Apnea STOP Sleep Apnea - sales marketing coordinator: STOP Sleep Apnea - sales marketing coordinator Hx Hypertension No 06/21/24 11:07 Hx Sleep Apnea No 06/21/24 11:07 CPAP BIPAP Do you snore loudly (louder Yes 06/21/24 11:07 than talking or can be heard Do you often feel tired/ No 06/21/24 11:07 fatigued/ sleepy during daytime? Has anyone observed you stop No 06/21/24 11:07 breathing during sleep? STOP Results Negative 06/21/24 11:07 QUESTION #5 FULL TEXT : Do you snore loudly (louder than talking or can be heard through closed doors)? 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 Specify any problems Hx of Preganancy in last 3 N/A 06/21/24 11:07 Months Nurse Filling Out Transfusion MGRIFFITH 06/21/24 11:07 & Questions: Date: 06/21/24 06/21/24 11:07 Time: 11:08 06/21/24 11:07 Patient unable to answer at this time (ie. confused, unrespo /Reproduction History /Reproductive History - sales marketing coordinator: /Reproductive Hx- sales marketing coordinator Hx Now Gestational Age (in weeks): EDC: Hx Hx Para Hx Section SAB [facility] Medical History Wears contact lenses Alcohol use High cholesterol Heartburn Non-smoker Cardiology follow-up encounter History of stress test History of echocardiogram Ventricular septal defect Abnormal EKG (01/27/18) Tachycardia (01/27/18) Palpitations (01/27/18) Home Medications ?Medication ?Instructions ?Recorded ?Last Taken ?Type NK 01/27/18 Unknown History Allergy/AdvReac Type Severity Reaction Status Date / Time No Known Allergies Allergy Verified 06/21/24 11:06 Family History Grandfather CAD (coronary artery disease) Myocardial infarction Uncle CAD (coronary artery disease) Myocardial infarction Surgical History H/O wisdom tooth extraction Social History Smoking Status: Never smoker alcohol intake: current substance use type: does not use frequency: daily duration: 15-30 minutes/day Audit: Pertinent Findings HISTORY of Pertinent Findings History of Pertinent Findings: EKG Pertinent Findings EKG Perinent findings 01/27/2018. Normal sinus 06/21/24 16:[address] elevation, consider early repolarization. Stress Test Pertinent Findings Stress test pertinent findings 03/12/2018. EF 65%. 06/21/24 16:40 Negative for ischemia by EKG and echogenic criteria. Ejection fraction with stress was 75%. Echo Pertinent Findings Echo (EF%) pertinent findings 03/10/2018. EF 65%. RVSP is 06/21/24 16:40 34 mmHg. No aortic stenosis is noted. Consult Pertinent Findings Consult pertinent findings 02/17/2018. 06/21/24 16:48 1. Ventriculoseptal defect- noted at . Close by a few months of age. Patient has no detectable murmurs at this time. Patient does present with palpitations and tachycardia on his Apple Watch. Will check echo and stress. (See above) 2. Abnormal EKG-normal sinus rhythm with anterior J -point elevation consistent with LVH and repolarization abnormality. Consider normal in young male. 3. 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 Recommendation Anesthesia Recommendation Anesthesia recommendation: OPTIMIZED for anesthesia
--- NOTE | 2024-06-23 12:37 | PCM.PRE.AN2 ---
ASA Classification* ASA Classification ASA Classification: 2 Assessment & Plan Anesthesia* Anesthesia Assessment Anesthesia Assessment: Discussed sedation and/or anesthesia options, risks, benefits, and alternatives with patient/parents/legal guardian/POA. Questions invited. The patient/parents/legal guardian/POA seems to understand and agrees to proceed with anesthesia plan. Reviewed the physical assessment, medical history, allergy history and patient home medications list prior to surgery/procedure/anesthetic and documented any changes. Performed airway and anesthesia risk assessments. Anesthesia Type Anesthesia Type: MAC Anesthesia Focused Assessment* Airway Assessment Mouth opens: >3 cm Mallampati Score: II Focused Labs Anesthesia Preop lab: CBC WBC 6.2 K/mm3 (4.4-11.0) 01/27/18 14:10 01/27/18 RBC 5.23 M/mm3 (4.6-6.2) 01/27/18 14:10 01/27/18 Hgb 15.4 g/dl (13.0-16.5) 01/27/18 14:10 01/27/18 Hct 45.3 % (40-54) 01/27/18 14:10 01/27/18 Plt Count 292 K/mm3 (150-450) 01/27/18 14:10 01/27/18 CHEMISTRY Potassium 3.8 mmol/L (3.5-5.1) 01/27/18 14:10 01/27/18 Sodium 141 mmol/L (136-145) 01/27/18 14:10 01/27/18 BUN 11 mg/dL (7-18) 01/27/18 14:10 01/27/18 Creatinine 1.00 mg/dL (0.70-1.30) 01/27/18 14:10 01/27/18 Glucose 85 mg/dL (74-106) 01/27/18 14:10 01/27/18 TSH 1.60 uIU/mL (0.358-3.74) 01/27/18 14:10 01/27/18 COAG Pre-Assessment Diagnosis/Proposed Procedure Planned Operative Procedure(s): EGD Anesthesia History 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 When Was Last Pacemaker Check QUESTION #4 FULL TEXT: You/Your Family Experience fever (hyperthermia) with Anesthesia Last Oral Intake Last Oral intake: Last Oral Intake NPO since Meds taken in AM with sips of water? Meds patient instructed to take am of surgery PONV PONV - hull drafter: PONV - hull drafter Female No 06/21/24 11:07 HX of Motion Sickness No 06/21/24 11:07 HX of N/V After Surgery No 06/21/24 11:07 Non-Smoker Yes 06/21/24 11:07 Duration of Surgery greater No 06/21/24 11:07 than 60 minutes Number of Risk Factors 1 06/21/24 11:07 PONV Score Low Risk 06/21/24 11:07 Respiratory Assessment Respiratory Assessment - hull drafter: Respiratory Tract Infection Hx - hull drafter Hx Respiratory Tract Infection No 06/21/24 11:07 STOP Sleep Apnea STOP Sleep Apnea - hull drafter: STOP Sleep Apnea - hull drafter Hx Hypertension No 06/21/24 11:07 Hx Sleep Apnea No 06/21/24 11:07 CPAP BIPAP Do you snore loudly (louder Yes 06/21/24 11:07 than talking or can be heard Do you often feel tired/ No 06/21/24 11:07 fatigued/ sleepy during daytime? Has anyone observed you stop No 06/21/24 11:07 breathing during sleep? STOP Results Negative 06/21/24 11:07 QUESTION #5 FULL TEXT : Do you snore loudly (louder than talking or can be heard through closed doors)? 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 History - hull drafter: Tobacco Use History - hull drafter Tobacco Use Smoking Status Never smoker 06/21/24 11:07 Hx Tobacco Use No 06/21/24 11:07 Years Smoking Packs Smoked per Day Smoking Cessation Date was within the last 15 years Hx Smoking Cessation Date Hx Smoking Cessation Counseling Hematologic Medial History Hematologic Hx - hull drafter: Hematologic Medical Hx - clinical documentation spec Hx of Blood Transfusion No 06/21/24 11:07 Hx of Transfusion in last 3 No 06/21/24 11:07 Months Date of Last Transfusion (if within last 3 months) Ever experience any problems No 06/21/24 11:07 with transfusion(s)? Specify any problems Hx of Preganancy in last 3 N/A 06/21/24 11:07 Months Nurse Filling Out Transfusion MGRIFFITH 06/21/24 11:07 & Questions: Date: 06/21/24 06/21/24 11:07 Time: 11:08 06/21/24 11:07 Patient unable to answer at this time (ie. confused, unrespo /Reproduction History /Reproductive History - hull drafter: /Reproductive Hx- hull drafter Hx Now Gestational Age (in weeks): EDC: Hx Hx Para Hx Section SAB Active Medications Active Medications: Current Medications Generic Name Dose Route Start Last Admin Trade Name Freq PRN Reason Stop Dose Admin Lactated Ringer's 1,000 mls @ 15 mls/hr 06/23/24 12:30 IV .Q48H SHERI PFSH Medical History Wears contact lenses Alcohol use High cholesterol Heartburn Non-smoker Cardiology follow-up encounter History of stress test History of echocardiogram Ventricular septal defect Abnormal EKG (01/27/18) Tachycardia (01/27/18) Palpitations (01/27/18) Home Medications ?Medication ?Instructions ?Recorded ?Last Taken ?Type NK 01/27/18 Unknown History Allergy/AdvReac Type Severity Reaction Status Date / Time No Known Allergies Allergy Verified 06/21/24 11:06 Family History Grandfather CAD (coronary artery disease) Myocardial infarction Uncle CAD (coronary artery disease) Myocardial infarction Surgical History H/O wisdom tooth extraction Social History Smoking Status: Never smoker alcohol intake: current substance use type: does not use frequency: daily duration: 15-30 minutes/day Review of Systems (Anesthesia) ROS Narrative System reviewed and no additional complaints, except as documented.
[2024-06-23 12:48] VITALS: BP 139/79; PULSE 114; RESP 18; TEMP 36.9; O2SAT 100; BMI 23.3
[2024-06-23] MEDS: Lactated Ringers 1,000 ML 15 ML IV (12:51)
--- NOTE | 2024-06-23 13:15 | EGD_PTH ---
PATIENT: ANDRA JEREZ LOC: [facility] U#:[id number] AGE/SX: 34/M ROOM: RE06/23/[address]: Dr. Kane Vann DO : 1990 BED: DIS: 06/23/2024 SPEC #: [id number] RECD: 06/23/24 17:52 STATUS: ELOY RESheldon #: [id number] JOAQUIN: 06/23/24 13:[address]: Kane Vann DEPT: SURGICAL PATHOLOGY RECD BY: Hari Mora ENTERED: 06/24/24 08:59 SP TYPE: EGD BIOPSY KHAI DR: Dr. Mario Schmidt MD Tissues: A - Duodenum, NOS B - Gastric mucous membrane C - Esophagus, NOS Procedures: Immunohistochemical Stains Surgery Specimen Level IV HEADER OPERATION: EGD with biopsy PRE-OP DIAGNOSIS: Abdominal pain TISSUE SUBMITTED: A- Duodenum biopsy, B- Gastric body biopsy, C- Distal esophagus biopsy MICROSCOPIC DIAGNOSIS A. Small bowel, duodenum, biopsy: No specific pathologic change. Negative for intraepithelial lymphocytosis. B. Stomach, gastric body, biopsy: Oxyntic mucosa with features of reactive gastropathy. IHC negative for H.pylori organisms. C. Esophagus, distal, biopsy: Squamous mucosa with mild reactive change. Columnar mucosa negative for goblet cell metaplasia. MICROSCOPIC DESCRIPTION Slides are reviewed. All matched controls reacted appropriately. These tests were developed and their performance characteristics determined by [facility]. They may not have been cleared or approved by the U.S. Food and Drug Administration. The FDA has determined that such clearance or approval is not necessary. The above immunohistochemical/dualISH markers are ordered and reviewed by the Pathologist. GROSS DESCRIPTION A. Received in formalin in a container labeled with the patient's name, date of , and duodenum biopsy are 2 ortiz-pink fragments of mucosal tissue each measuring 0.3 x 0.3 x 0.2 cm. Submitted in toto in A1. B. Received in formalin in a container labeled with the patient's name, date of , and gastric body biopsy are 2 ortiz-pink strips of mucosal tissue measuring 0.5 x 0.2 x 0.2 cm and 0.8 x 0.2 x 0.2 cm. Submitted in toto in B1. C. Received in formalin in a container labeled with the patient's name, date of , and distal esophagus biopsy are 2 white-pink fragments of mucosal tissue measuring 0.4 x 0.3 x 0.3 cm and 0.5 x 0.3 x 0.3 cm. Submitted in toto in C1. [facility] 06-24-2024 CPT:91098a8,84175
--- NOTE | 2024-06-23 13:54 | PCM.HP.STD ---
[facility] - General General Date of Admission: 06/23/24 Date of Service: 06/23/24 Chief Complaint: abdominal pain HPI Narrative DANIEL JEREZ, is a 34 M who presents with concerns regarding stomach ulcer or H.pylori infection. He reports dull ache to the epigastric area that will occasionally radiate through to his back and over to the LUQ of his abdomen. He states that the ache is worst when he's hungry, he reports eating meals at dinner and then not again usually until lunch due to time constraints from work. He works in a high stress environment. He reports having taken wheat and dairy out of his diet and this helped briefly. He has added these things back to his diet and has not noticed worsening symptoms. His PCP gave him omeprazole 40mg daily x4wks, stated he thought he was cured the first week, but then symptoms returned and worsened by the 4th week. He has been off of PPI therapy x2wks now. He reports that eating does make the epigastric ache go away completely, but is unsure of the timing of its return. He reports sinus drainage and no known allergies. He denies difficulty chewing and swallowing, cough, throat clearing, reflux, waking with a sour taste in his mouth, nausea, vomiting, abdominal bloating, cramping, excessive gas, constipation, diarrhea, hematochezia and melena. [facility] Medical History Wears contact lenses Alcohol use High cholesterol Heartburn Non-smoker Cardiology follow-up encounter History of stress test History of echocardiogram Ventricular septal defect Abnormal EKG (01/27/18) Tachycardia (01/27/18) Palpitations (01/27/18) Home Medications ?Medication ?Instructions ?Recorded ?Last Taken ?Type NK 01/27/18 Unknown History Allergy/AdvReac Type Severity Reaction Status Date / Time No Known Allergies Allergy Verified 06/23/24 12:48 Family History Grandfather CAD (coronary artery disease) Myocardial infarction Uncle CAD (coronary artery disease) Myocardial infarction Surgical History H/O wisdom tooth extraction Social History Smoking Status: Never smoker alcohol intake: current substance use type: does not use frequency: daily duration: 15-30 minutes/day ROS Constitutional Constitutional: Denies fatigue, fever(s), poor appetite, weight gain or weight loss Gastrointestinal Gastrointestinal: Denies belching, bloating, change in bowel habits, change in stool character, chewing difficulty, coffee ground emesis, constipation, cramping, diarrhea, dyspepsia, dysphagia, early satiety, excessive flatus, fecal incontinence, heartburn, hematemesis, hematochezia, hemorrhoids, loose stools, melena, nausea, odynophagia, rectal bleeding, tenesmus, vomiting or weight changes Vital Signs Vital Signs Vital Signs: 06/23/24 12:48 06/23/24 12:48 Temperature 98.4 F Temperature Source Temporal Pulse Rate 114 H Respiratory Rate 18 Respiratory Pattern Normal Blood Pressure 139/79 H Blood Pressure Mean 99 Blood Pressure Source Monitor Blood Pressure Position Sitting Blood Pressure Location Right Arm Pulse Ox 100 Oxygen Delivery Method Room Air Weight Weight: 171 lb 15.369 oz Body Mass Index (BMI) 23.3 Physical Exam Const alert, oriented x3, no apparent distress and healthy appearing General Appearance: cooperative GI normal to inspection, nondistended, normoactive bowel sounds, soft to palpation, non-tender and non-distended Percussion: normal to percussion Rectal Exam: deferred Assessment & Plan Assessment/Plan (1) Abdominal pain: QUALIFIERS: Abdominal location: epigastric Qualified Code(s): R10.13 - Epigastric pain PLAN: Assessment and Plan Assessment and Plan (1) Abdominal pain: Status: Acute Qualifiers: Abdominal location: epigastric Qualified Code(s): R10.13 - Epigastric pain Orders: Orders Gallbladder Today R10.9 - Unspecified abdominal pain Plan ANDRA JEREZ, is a 34 M who presents to the office today for establishment with [facility] for concerns regarding stomach ulcer or H.pylori infection. Differential diagnoses include: PUD, gastritis, GERD, bile acid reflux. Discussed care plan with him and his . He prefers not to take any medications, as the pain is tolerable he just wants to know it keeps happening. Ltd abdominal US to examine biliary ducts schedule EGD may use famotidine OTC for heartburn discomfort PRN office FU with results
--- NOTE | 2024-06-23 14:19 | OP.CCLET_ITS ---
06/23/2024 Mario Schmidt Re : Upper GI endoscopy procedure for Alexandre Mackr Brayan This procedure was performed on Sunday, June 23, 2024. My impressions and recommendations are as follows: Impressions : - LA Grade B reflux esophagitis with no bleeding. Biopsied. - Non-bleeding gastric ulcers with no stigmata of bleeding. Biopsied. - No gross lesions in the entire examined duodenum. Biopsied. Recommendations : - Discharge patient to home. - Resume previous diet. - Continue present medications. - Await pathology results. My findings are described in the full procedure note, which is enclosed. If I can be of further assistance, please feel free to contact me at . Sincerely, Kane Friend, 06/23/2024 2:19:20 PM This report has been signed electronically.
--- NOTE | 2024-06-23 14:19 | OP.EGD_ITS ---
Patient Name: Alexandre Freeman Procedure Date: 06/23/2024 2:01 PM Date of : 1990 Age: 34 Procedure: Upper GI endoscopy Indications: Epigastric abdominal pain, Functional Dyspepsia, Indigestion Providers: Kane Vann DO Referring MD: Mario Schmidt Medicines: Monitored Anesthesia Care Patient Profile: This is a 34 year old male. Refer to note in patient chart for documentation of history and physical. Patient has symptoms of acute abdominal cramping, acute epigastric abdominal pain, acute dyspepsia and chronic dyspepsia. Complications: No immediate complications. Procedure: Pre-Anesthesia Assessment: - Prior to the procedure, a History and Physical was performed, and patient medications and allergies were reviewed. The patient is competent. The risks and benefits of the procedure and the sedation options and risks were discussed with the patient. All questions were answered and informed consent was obtained. Patient identification and proposed procedure were verified by the physician in the pre-procedure area. Mental Status Examination: alert and oriented. Airway Examination: normal oropharyngeal airway and neck mobility. Respiratory Examination: clear to auscultation. CV Examination: normal. Prophylactic Antibiotics: The patient does not require prophylactic antibiotics. Prior Anticoagulants: The patient has taken no anticoagulant or antiplatelet agents. ASA Grade Assessment: II - A patient with mild systemic disease. After reviewing the risks and benefits, the patient was deemed in satisfactory condition to undergo the procedure. The anesthesia plan was to use monitored anesthesia care (MAC). Immediately prior to administration of medications, the patient was re-assessed for adequacy to receive sedatives. The heart rate, respiratory rate, oxygen saturations, blood pressure, adequacy of pulmonary ventilation, and response to care were monitored throughout the procedure. The physical status of the patient was re-assessed after the procedure. After obtaining informed consent, the endoscope was passed under direct vision. Throughout the procedure, the patient's blood pressure, pulse, and oxygen saturations were monitored continuously. The gastroscope was introduced through the mouth, and advanced to the third part of the duodenum. Small bowel enteroscopy was deemed necessary. The upper GI endoscopy was accomplished without difficulty. The patient tolerated the procedure well. Scope In: 2:09:56 PM Scope Out: 2:14:07 PM Total Procedure Duration Time 0 hours 4 minutes 11 seconds Findings: LA Grade B (one or more mucosal breaks greater than 5 mm, not extending between the tops of two mucosal folds) esophagitis with no bleeding was found 38 to 40 cm from the incisors. Biopsies were taken with a cold forceps for histology. Verification of patient identification for the specimen was done. Estimated blood loss was minimal. Two non-bleeding cratered gastric ulcers with no stigmata of bleeding were found in the gastric body. The largest lesion was 6 mm in largest dimension. Biopsies were taken with a cold forceps for histology. Verification of patient identification for the specimen was done. Biopsies were taken with a cold forceps for Helicobacter pylori testing. Verification of patient identification for the specimen was done. Estimated blood loss was minimal. No gross lesions were noted in the entire examined duodenum. Biopsies were taken with a cold forceps for histology. Verification of patient identification for the specimen was done. Estimated blood loss was minimal. Impression: - LA Grade B reflux esophagitis with no bleeding. Biopsied. - Non-bleeding gastric ulcers with no stigmata of bleeding. Biopsied. - No gross lesions in the entire examined duodenum. Biopsied. Recommendation: - Discharge patient to home. - Resume previous diet. - Continue present medications. - Await pathology results. Procedure Code(s): --- Professional --- 13099, Small intestinal endoscopy, enteroscopy beyond second portion of duodenum, not including ileum; with biopsy, single or multiple CPT copyright 2021 [employer]. All rights reserved. The codes documented in this report are preliminary and upon cemetery laborer review may be revised to meet current compliance requirements. Kane Vann DO 06/23/2024 2:19:20 PM This report has been signed electronically. Number of Addenda: 0 Note Initiated On: 06/23/2024 2:01 PM
[2024-06-23 14:20] VITALS: BP 139/79; BP 96/81; PULSE 89; RESP 16; TEMP 36.8; O2SAT 98
[2024-06-23 14:22] VITALS: BP 96/81; PULSE 99; RESP 16; TEMP 37.6; O2SAT 100
--- NOTE | 2024-06-23 14:22 | PCM.POST.ANE ---
Anesthesia: Postop Eval I Current Vital Signs Temperature: 99.7 F Pulse Rate: 99 Blood Pressure: 96/81 Respiratory Rate: 16 Pulse Ox: 100 Assessment Airway patent: Yes Spontaneous unlabored respirations: Yes nausea: No Vomiting: No Anesthesia Complication: No Fluid Hydration Crystalloid volume administer (ml): 200 Total IV fluid infused: 200 Progress Note Anesthesia document: Postop Eval 1 completed: Yes
[2024-06-23 14:25] VITALS: BP 127/86; BP 139/79; PULSE 85; RESP 16; O2SAT 98
[2024-06-23 14:30] VITALS: BP 127/83; BP 139/79; PULSE 85; RESP 16; TEMP 37.2; O2SAT 98
[2024-06-23 14:42] VITALS: BP 139/79
--- NOTE | 2024-06-23 17:45 | POSTOPAN2_ITS ---
Anesthesia Postop Eval I Sum Postop Eval Completion status Anesthesia document: Postop Eval 1 completed: Yes Anesthesia Postop Eval I Summary Anesthesia Postop Eval I Summary: Anesthesia Postop Eval I: Assessment Summary Airway patent Yes 06/23/24 14:22 DYE PADDER [email or web address] Spontaneous unlabored Yes 06/23/24 14:22 DYE PADDER [email or web address] respirations Mental status nausea No 06/23/24 14:22 DYE PADDER [email or web address].[email or web address] Vomiting No 06/23/24 14:22 DYE PADDER [email or web address] Anesthesia Postop Eval I: Fluid Summary Crystalloid volume administer 200 06/23/24 14:22 DYE PADDER [email or web address].[email or web address] (ml) Colloids volume administered ( ml) Blood Product volume administered (ml) Total IV fluid infused 200 06/23/24 14:22 DYE PADDER [email or web address] Anesthesia Postop Eval I: Summary Notes Anesthesia Complication No 06/23/24 14:22 DYE PADDER [email or web address] Anesthesia Complication Comment: Post-operative progress note Anesthesia: Postop Eval II Evaluation Mental status: Awake and Calm Pain Level: 0 nausea: No Vomiting: No Complications Anesthesia Complication: No
--- NOTE | 2024-06-23 17:45 | PCM.POSTANE2 ---
Anesthesia Postop Eval I Sum Postop Eval Completion status Anesthesia document: Postop Eval 1 completed: Yes Anesthesia Postop Eval I Summary Anesthesia Postop Eval I Summary: Anesthesia Postop Eval I: Assessment Summary Airway patent Yes 06/23/24 14:22 RELAY [email or web address] [email or web address] Spontaneous unlabored Yes 06/23/24 14:22 RELAY SHOP [email or web address] respirations Mental status nausea No 06/23/24 14:22 RELAY [email or web address] [email or web address] Vomiting No 06/23/24 14:22 RELAY [email or web address] [email or web address] Anesthesia Postop Eval I: Fluid Summary Crystalloid volume administer 200 06/23/24 14:22 RELAY [email or web address] [email or web address] (ml) Colloids volume administered ( ml) Blood Product volume administered (ml) Total IV fluid infused 200 06/23/24 14:22 RELAY [email or web address] [email or web address] Anesthesia Postop Eval I: Summary Notes Anesthesia Complication No 06/23/24 14:22 RELAY SHOP [email or web address].[email or web address] Anesthesia Complication Comment: Post-operative progress note Anesthesia: Postop Eval II Evaluation Mental status: Awake and Calm Pain Level: 0 nausea: No Vomiting: No Complications Anesthesia Complication: No
== END 2024-06-23 14:56 | disposition home or self-care (01) ==
LOC: EN 12:26 → AC 12:51
PROVIDERS: PCP Internal Medicine; Referring Provider Internal Medicine; Visit Provider Internal Medicine Gastroenterology
PROC: 0DJ08ZZ Inspection of Upper Intestinal Tract, Via Natural or Artificial Opening Endoscopic (ICD-10-PCS; CPT 43235; principal; 2024-06-23 13:10)
DX: K21.00 Gastro-esophageal reflux disease with esophagitis, without bleeding (principal); K25.9 Gastric ulcer, unspecified as acute or chronic, without hemorrhage or perforation; E78.00 Pure hypercholesterolemia, unspecified; Z79.899 Other long term (current) drug therapy
CPT/HCPCS: 43239; 88305; 88342